=== PATIENT | female | born 2000 | race Caucasian/White ===

== ENCOUNTER 2023-07-28 16:38 | Emergency (ER) | payer BC ==
[~2023-07-28 16:38] MED LIST: Iopamidol 300 61% 100 ML VIAL FS ONE
[2023-07-28 17:40] LABS: #Basophils 0.04 10x3/uL (0.0-0.2); #Eosinphils 0.03 10x3/uL (0.0-0.5); #Monocytes 0.59 10x3/uL (0.0-1.1); %Basophils 0.4 % (0.0-2.0); %Eosinophils 0.3 % (0.0-6.0); %Lymphocytes 23.4 % (18.0-47.0); %Monocytes 6.6 % (0.0-10.0); %Neutrophils 69.2 % (40.0-75.0); Hematocrit 41.4 % (34.9-44.5); Hemoglobin 14.2 g/dL (12.0-15.5); Mean Corpuscular HGB CONC 34.3 g/dL (32.0-36.0); Mean Corpuscular Hemoglobin 29.6 pg (27.0-33.0); Mean Corpuscular Volume 86.3 fl (81.6-98.3); Mean Platelet Volume 10.2 fl (7.4-10.4); Platelet Count 280 10x3/uL (150-450); RBC Distribution Width 13.1 % (11.5-14.5)
[2023-07-28 17:48] LABS: BHCG - Serum Negative (NEGATIVE)
[2023-07-28 17:49] LABS: Pregs Control Background? CLEAR/WHITE (CLR/WHITE); Pregs Control Bar Appear? YES (CONTROL BAR)
[2023-07-28 17:54] LABS: ALT (SGPT) 26 U/L (8-55); AST (SGOT) 21 U/L (5-34); Albumin 4.1 g/dL (3.5-5.0); Alkaline Phosphatase 109 U/L (40-100); Anion Gap 14 mmol/L (10-20); BUN (Urea Nitrogen) 9 mg/dL (7.0-18.7); Bilirubin, Total 0.6 mg/dL (0.2-1.2); Calc. Creatinine Clearance 0 mL/min (70-130); Calcium 9.7 mg/dL (7.8-10.44); Carbon Dioxide 23 mmol/L (22-29); Chloride 104 mmol/L (98-107); Estimated GFR 110; Globulin 3.5 g/dL (2.4-3.5); Glucose 81 mg/dL (70-105); Potassium 3.6 mmol/L (3.5-5.1); Protein, Total 7.6 g/dL (6.0-8.3); Sodium 137 mmol/L (136-145)
== END 2023-07-28 21:32 | disposition home or self-care (01) ==
LOC: CSHERS 16:38
DX: K64.4 Residual hemorrhoidal skin tags (principal)
CPT/HCPCS: 36415; 74177; 80053; 82274; 84703; 85025; Q9967